=== PATIENT | female | born 1970 | race Caucasian/White ===

== ENCOUNTER → 2023-10-19 13:58 | Outpatient (REF) | payer OTHER, SELFPAY | LOC: WDC 13:58 | PROVIDERS: ATTENDING PHYSICIAN Obstetrics & Gynecology; FAMILY PHYSICIAN Nurse Practitioner | DX: R92.8 Other abnormal and inconclusive findings on diagnostic imaging of breast (principal); Z80.3 Family history of malignant neoplasm of breast | CPT/HCPCS: 76641 ==

== ENCOUNTER → 2024-02-15 15:55 | Outpatient (REF) | payer OTHER, SELFPAY | LOC: HWRAD 15:55 | PROVIDERS: ATTENDING PHYSICIAN Nurse Practitioner | DX: Z87.891 Personal history of nicotine dependence (principal) | CPT/HCPCS: 71271 ==

== ENCOUNTER → 2024-08-26 12:20 | Outpatient (REF) | payer OTHER, SELFPAY | LOC: WDC 12:20 | PROVIDERS: ATTENDING PHYSICIAN Obstetrics & Gynecology | DX: Z12.31 Encounter for screening mammogram for malignant neoplasm of breast (principal) | CPT/HCPCS: 77063; 77067 ==

== ENCOUNTER 2025-01-23 05:43 | Emergency (ER) | payer OTHER, SELFPAY ==
[2025-01-23 05:45] VITALS: BP 170/98
[2025-01-23 06:20] VITALS: BMI 40.2
--- NOTE | 2025-01-23 06:51 | ED.MUSCINJ ---
HPI-Injury
General
Chief Complaint: Musculo-Skeletal Complaint
Source: patient
Exam Limitations: none
Time Seen by Provider: 01/23/25 06:37
History of Present Illness-Injury
Initial Injury comments:
54-year-old female presents with relatively atraumatic left knee discomfort with associated calf pain. She notes her knee is swollen. She notes that her knee clicks and catches at times. This started shortly after her feet falling asleep when
sitting on the toilet too long. No recent extended travel or surgery. No chest pain or shortness of breath. No fevers. No other complaints
Past History
Past History
ED Past Medical History: Hypothyroidism; Negative HTN, Hypercholesterolemia, IDDM or NIDDM
ED Past Surgical History: Gynecological (Bilateral salpingectomy with right oophorectomy May 2014); Negative Appendectomy, Bowel resection, Cardiac or Cholecystectomy
Social History
Tobacco: Non-smoker
Alcohol: Occasional
Drug: None
Personal:
Living: with family
Employment: Employed (Patient is a nurse)
Family History
Family History: Other (Mom had a TIA in her 60s.)
Phy Exam
Physical Exam
Physical Exam:
General: Well-appearing female no acute respiratory distress
HEENT: Normocephalic atraumatic
Musculoskeletal exam: Left knee with mild effusion she is able to straight leg raise flexion is limited to about 90 degrees. There is some tenderness over the posterior joint line. Knee is stable ligament exam no significant Edema
Skin is without erythema
Injury Course
Orders/Labs/Results
Orders:
Orders
01/23/25 06:26
CR Knee - Left 4 Or More View* Urgent
Reason For Exam: L knee pain
01/23/25 06:50
Venous Doppler Lwr Ext Left [US Periph Venous LOWER Ext LT] Urgent
Comment:
Reason For Exam: swelling, pain
MDM/Problems Addressed
Differential Diagnosis Includes:
Left knee and calf pain. Consider degenerative disease versus meniscal injury versus effusion versus Lindsay's cyst or DVT. no signs of septic arthritis.
X-ray left knee and ultrasound left leg pending
*Pulse Oximetry
SaO2: 98
Oxygen Mode of Delivery: Room air
*Critical Care Note
Total Time (30-74mins, 75-104mins- exclusive of procedures): Not Applicable
Update Note
Update Note:
X-ray left knee without acute findings ultrasound left leg without acute finding. Suspect knee sprain perhaps meniscal injury. Recommended gentle range of motion exercises and ibuprofen. She will follow-up with her orthopedic provider for further
evaluation
ED Attending Note
-
Portions of this chart may have been created with voice recognition software.� Occasional wrong word or��sound alike� substitutions may have occurred due to the inherent limitations of voice recognition software.
Discharge Plan
Departure
Patient Disposition: Home (Routine Discharge)
Date of Disposition: 01/23/25
Time of Disposition: 10:20
Patient with high blood pressure during this ER visit?: No
Discharge Problem:
Knee sprain
Instructions: Knee Sprain (DC)
Prescriptions:
No Action
ascorbic acid (vitamin C) [Vitamin C] 500 MG tablet
500 mg PO DAILY
cholecalciferol (vitamin D3) 1,000 UNITS tablet
1,000 units PO DAILY
omeprazole magnesium [Prilosec OTC] 20 MG tablet,delayed release (DR/EC)
20 mg PO DAILY Qty: 30 0RF
levothyroxine 100 MCG tablet
100 mcg PO DAILY
oxycodone 5 MG tablet
5 mg PO Q4HPRN PRN (Reason: breakthrough/severe pain) Qty: 7 0RF
dicyclomine 20 MG tablet
20 mg PO QIDPRN PRN (Reason: cramping) Qty: 20 0RF
cephalexin 500 MG tablet
500 mg PO BID 7 Days Qty: 28 0RF
Referrals:
Skip Villatoro CRNP [Family Provider]
Activity Restrictions/Additional Instructions:
Continue with Motrin if needed for pain. Keep the knee moving with gentle motion exercises. Follow-up with your orthopedic doctor as planned
Interventions
Interventions:
*Risk Screen - Suicide Last Done: 01/23/25 05:45
*General Assessment Last Done: 01/23/25 06:19
*Neglect/Abuse Screening Last Done: 01/23/25 05:45
*ED- Fall Risk Assessment Last Done: 01/23/25 06:19
*ED COVID-19 Vaccine History Last Done: 01/23/25 06:19
ED-Musculoskeletal Assessment Last Done: 01/23/25 06:21
Discharge Date and Time
Print Language: COLOMBIAN
[2025-01-23 10:00] VITALS: BP 145/75
== END 2025-01-23 10:30 | disposition home or self-care (01) ==
LOC: EMR 05:43
PROVIDERS: EMERGENCY PHYSICIAN Student in an Organized Health Care Education/Training Program
DX: S83.92XA Sprain of unspecified site of left knee, initial encounter (principal); R22.42 Localized swelling, mass and lump, left lower limb; X58.XXXA Exposure to other specified factors, initial encounter; E03.9 Hypothyroidism, unspecified; E11.9 Type 2 diabetes mellitus without complications; E78.00 Pure hypercholesterolemia, unspecified; Z90.49 Acquired absence of other specified parts of digestive tract; Z90.722 Acquired absence of ovaries, bilateral; Z90.79 Acquired absence of other genital organ(s)
CPT/HCPCS: 99284; 73564; 93971

== ENCOUNTER → 2025-02-21 14:56 | Outpatient (REF) | payer OTHER, SELFPAY | LOC: HWRAD 14:56 | DX: Z87.891 Personal history of nicotine dependence (principal) | CPT/HCPCS: 71271 ==

== ENCOUNTER → 2025-02-22 15:00 | Outpatient (REF) | payer OTHER, SELFPAY | LOC: WDC 15:00 | PROVIDERS: ATTENDING PHYSICIAN Obstetrics & Gynecology | DX: R92.2 Inconclusive mammogram (principal) | CPT/HCPCS: 76641 ==